=== PATIENT | female | born 1975 | race Caucasian/White ===

== ENCOUNTER 2017-12-17 20:14 | Emergency (ER) | payer MEDICAID ==
[~2017-12-17] VITALS: Ht 162.6 cm; Wt 79.4 kg
[2017-12-17 20:23] VITALS: Ht 162.6 cm; Wt 79.4 kg
[2017-12-17 22:19] LABS: BASOPHIL % 0.4 % (0-2)
[2017-12-17 22:20] LABS: PLATELET COUNT 409 x10^3mcL (130-400); RED CELL DISTRIBUTION WIDTH 20.9 % (11.5-14.5)
[2017-12-17 22:28] LABS: CALCIUM 8.8 mg/dL (8.5-10.1); CARBON DIOXIDE 25.7 mmol/L (21-32); CHLORIDE SERUM 103 mmol/L (98-107); CREATININE SERUM 0.6 mg/dL (0.6-1.0); GFR1 > 60 mL/min; GLUCOSE SERUM 86 mg/dL (74-106); POTASSIUM SERUM 3.4 mmol/L (3.5-5.1); SODIUM SERUM 140 mmol/L (136-145)
[2017-12-18 00:11] VITALS: BP 171/98
== END 2017-12-18 00:31 | disposition home or self-care (01) ==
LOC: ED 20:14
PROVIDERS: Emergency Medicine
DX: Z53.21 Procedure and treatment not carried out due to patient leaving prior to being seen by health care provider (principal)
CPT/HCPCS: J1885

== ENCOUNTER 2019-10-12 20:21 | Inpatient (IN) | payer MEDICAID ==
[~2019-10-12] VITALS: Ht 162.6 cm; Wt 88.0 kg
[2019-10-12 20:25] VITALS: Ht 162.6 cm; Wt 88.0 kg
--- NOTE | 2019-10-12 20:27 | NUR ---
EKG IN PROGRESS IN TRIAGE
[2019-10-12 21:42] LABS: CALCIUM 8.7 mg/dL (8.5-10.1); CARBON DIOXIDE 30.6 mmol/L (21-32); CHLORIDE SERUM 100 mmol/L (98-107); CREATININE SERUM 0.7 mg/dL (0.6-1.0); GFR1 > 60 mL/min; GLUCOSE SERUM 77 mg/dL (74-106); POTASSIUM SERUM 3.2 mmol/L (3.5-5.1); SODIUM SERUM 135 mmol/L (136-145)
[2019-10-12 21:53] LABS: ALBUMIN 3.6 g/dL (3.4-5.0); ALKALINE PHOSPHATASE 106 U/L (46-116); ALT/SGPT 30 U/L (14-59); AST/SGOT 23 U/L (15-37); BILIRUBIN TOTAL 0.2 mg/dL (0.20-1.00); TOTAL PROTEIN, SERUM 7.9 g/dL (6.4-8.2)
[2019-10-12 21:58] LABS: BASOPHIL % 1.1 % (0-2)
[2019-10-12 22:01] LABS: RED CELL DISTRIBUTION WIDTH 20.8 % (11.5-14.5)
[2019-10-12 22:31] LABS: rbc morphology (normal/abnorm) ABNORMAL (NORMAL)
[2019-10-12 22:35] LABS: PLATELET COUNT 520 x10^3mcL (130-400)
--- NOTE | 2019-10-12 22:36 | NUR ---
ISAAC AT BEDSIDE FOR REPEAT EKG. DR Anglin AT BEDSIDE FOR MSE.
--- NOTE | 2019-10-12 22:37 | NUR ---
PT PRESENTS TO ED WITH C/C LEFT SIDED, SQUEEZING CHEST PAIN X1 DAY. PT STS PAIN WAS INITIALLY SHARP, THEN SQUEEZING AND PRESURE. STS INTERMITTENT SOB. CP IS NOW INTERMITTENT. PT HAS PMH HTN AND HAS BEEN NON COMPLIANT WITH BP MEDS X1 YEAR. PT IS AAOX4. RESP E/U. SPEECH IS CLEAR. NO FACIAL DROOP NOTED. PAIN IS NON RADIATING AND GENERALIZED TO THE LEFT SIDE OF CHEST. CONNECTED TO FULL CM.
--- NOTE | 2019-10-12 23:15 | NUR ---
SPOKE WITH PHARMACIST TO VERIFY HEPARIN GTT AT THIS TIME AND RESUPPLY NITRO SL.
--- NOTE | 2019-10-12 23:30 | NUR ---
HEPARIN GTT STARTED AT THIS TIME. HEPARIN PROTOCOL VERIFIED WITH WILLIAM RN AND DR Yashira THOMAS RN AT BEDSIDE TO COSIGN HEPARIN INFUSION. TO BEGIN AT 1100U/HR. PT AWARE OF MEDCATIONS. DENIES ANY ACTIVE BLEEDING AT THIS TIME. WILL CONTINUE TO MONITOR.
--- NOTE | 2019-10-12 23:30 | NUR ---
KARMA Anglin NO LOADING DOSE FOR HEPARIN GTT.
--- NOTE | 2019-10-13 01:09 | NUR ---
PATIENT SLEEPING IN POSITION OF COMFORT. HEPARIN GTT REMAINS INFUSING WELL TO RFA, NO S/S INFILTRATION. WILL CONTINUE POC.
--- NOTE | 2019-10-13 01:32 | NUR ---
PER DR PEGUERO GIVE PATIENT ATIVAN AND LIBRIUM FOR TACHYCARDIA. WILL FOLLOW UP WITH DR PEGUERO IN 1 HOUR.
--- NOTE | 2019-10-13 02:22 | NUR ---
REPORT GIVEN TO ENRICO BURROUGHS.
[2019-10-13 04:15] VITALS: BP 160/95
--- NOTE | 2019-10-13 05:03 | NUR ---
PATIENT ADMITTED TO THE CARE OF DR. ABDALLA. DX: N-STEMI. CHIEF C/O: SOB CHEST PAIN UPON ARRIVAL TO ER. PATIENT RECEIVED NITRO 0.4MG SL ONCE IN ER-SEE NOV. UPON ARRIVAL TO THE UNIT PATIENT DENIES SOB/CHEST PAIN. V/S WNL. 97% ON ROOM AIR. R FA 20GM SL. SKIN IS INTACT. NO ACUTE DISTRESS NOTED. WILL CONTINUE TO MONITOR.
[2019-10-13 06:41] VITALS: BP 145/78
[2019-10-13 07:01] LABS: CALCIUM 8.6 mg/dL (8.5-10.1); CARBON DIOXIDE 29.2 mmol/L (21-32); CHLORIDE SERUM 105 mmol/L (98-107); CREATININE SERUM 0.8 mg/dL (0.6-1.0); GFR1 > 60 mL/min; GLUCOSE SERUM 79 mg/dL (74-106); HDL CHOLESTEROL 52 mg/dL (40-60); POTASSIUM SERUM 3.3 mmol/L (3.5-5.1); SODIUM SERUM 142 mmol/L (136-145); TRIGLYCERIDES 66 mg/dL (<150)
[2019-10-13 07:03] LABS: CHOLESTEROL 129 mg/dL (<200); CHOLESTEROL/HDL RATIO 2.5
--- NOTE | 2019-10-13 07:30 | NUR ---
RECEIVED PT IN BED. ASSESSED AND DOCUMENTED. AT BEDSIDE. DENIES ANY PAIN THIS TIME. STABLE. TROP IS 0.157 THIS TIME, ON HEPARIN DRIP 1100U/HR THIS TIME. SAFTEY PRECAUTIONS ARE IN PLACE. WILL MONITOR.
[2019-10-13 09:19] VITALS: BP 153/83
--- NOTE | 2019-10-13 09:51 | NUR ---
PTT IS 31.2, HEPARIN DRIP RATE INCREASE TO 1500U/HR, NO BOLUS ORDERED, PER ER DOCTOR ORDER, NO HEPARIN BOLUS, DRIP ONLY. PAGED FOR VERIFY HEPARIN BOLUS ORDER, CHARGE NURSE AWARE.
--- NOTE | 2019-10-13 12:20 | NUR ---
SPOKE WITH , HE SAID TO GIVE PT BOLUS PER PROTOCOLE. ALSO INFORMED HIM ABOUT PT ALL TROPONIN LEVELS. HE SAID TO CONTINUE HEPARIN DRIP. 5300 BOLUS GIVEN AND CONTINUE THE RATE OF 1500U/HR. INFORMED K=3.3, RECIEVED ORDER FOR KCL 40MEG PO AND GIVEN. PT IS STABLE. NO SIGNS OF BLEEDING NOTED. DENIES CHEST PAIN. WILL MONITOR.
[2019-10-13 12:40] LABS: PLATELET COUNT 481 x10^3mcL (130-400); RED CELL DISTRIBUTION WIDTH 21.1 % (11.5-14.5)
[2019-10-13 13:23] VITALS: BP 134/81
--- NOTE | 2019-10-13 17:35 | NUR ---
PTT IS >150, HOLDING THE HEPARIN DRIP FOR 2HR. ORDERED PTT AT 1935. WILL ENDORSE TO CONTRACT NEGOTIATION MANAGER. PT DENIES CHEST PAIN. STABLE. FAMILY AT BEDSIDE.
[2019-10-13 17:43] VITALS: BP 145/81
--- NOTE | 2019-10-13 19:13 | NUR ---
PT RESTING IN BED COMFORTABLY, DENIES ANY PAIN. STABLE. HEPARIN ON HOLD THIS TIME. GAVE REPORT TO [employer] LABORATORY MANAGER. NO SIGNS OF BLEEDING NOTED.
--- NOTE | 2019-10-13 19:58 | NUR ---
Awake and verbally responsive. No respiratory distress noted on room air. Denies pain. Denies n/v. Heparin drip off for now. Waiting for the PTT level. Will cont.to monitor. Call light within reach. at the bedside.
--- NOTE | 2019-10-13 20:30 | NUR ---
PTT 57.3. will resume heparin drip @ 1500units/hr per protocol. Will recheck PTT level in 4hrs.
[2019-10-13 21:13] VITALS: BP 120/66
--- NOTE | 2019-10-14 01:20 | NUR ---
Received PTT level 97.7 will hold heparin infusion x1hr and reduce infusion by 3units/kg/hr per protocol.
--- NOTE | 2019-10-14 02:20 | NUR ---
Resumed Heparin drip @ 1200 units/hr per protocol. Will repeat PTT in 4hrs.
[2019-10-14 05:13] VITALS: BP 121/65
[2019-10-14 05:28] LABS: AMPHETAMINE QUAL UR POSITIVE (See below)
--- NOTE | 2019-10-14 07:10 | NUR ---
RECEIVED PT FROM NIGHT NURSE. PT IS LAYING DOWN IN BED WITH HOB UP RESTING WITH EYES CLOSED. PT LOOKS TO BE IN NO ACUTE DISTRESS AT THIS TIME. RESPIRATIONS EVEN AND UNLABORED ON ROOM AIR. IV SITE PATENT WITH NO SIGNS OF ERYTHEMA OR SWELLING, HEPARIN DRIP INFUSING AT 1200U/HR. TELE MONITOR 1 PRESENT SHOWING NSR. FAMILY MEMBER AT BEDSIDE. CALL LIGHT WITHIN REACH. WILL CONTINUE TO MONITOR.
--- NOTE | 2019-10-14 08:05 | NUR ---
PTT 83.6. PT HEPARIN DRIP DECREASED FROM 1200U/HR TO 48349 /HR. VERIFIED WITH 2ND RN. PT LOOKS TO BE IN NO ACUTE DISTRESS AT THIS TIME. WILL CONTINUE TO MONITOR
[2019-10-14 09:00] VITALS: BP 120/72
[2019-10-14] MEDS ORDERED: CLOPIDOGREL75 M1 PO (11:04)
[2019-10-14] MEDS ORDERED: ISOSORBIDE30 M1 PO (11:04)
[2019-10-14] MEDS ORDERED: NIT0.4 SL (11:04)
[2019-10-14] MEDS ORDERED: ECO81 PO (11:05)
[2019-10-14] MEDS ORDERED: METOPROLOL TART25 M1 PO (11:05)
[2019-10-14 12:10] VITALS: BP 127/74
--- NOTE | 2019-10-14 13:23 | NUR ---
RECEIVED CALL FROM LAB WITH PTT OF 54.6. PER HEPARIN PROTOCOL, NO CHANGE IN RATE.
[2019-10-14 15:51] VITALS: BP 116/62
--- NOTE | 2019-10-14 16:29 | NUR ---
PRIMARY NURSE MADE AWARE THAT LAB CALLED, PTT=56.5.
--- NOTE | 2019-10-14 19:06 | NUR ---
PT AWAKE, ALERT AND ORIENTED AT TIME OF DISCHARGE. PT LOOKS TO BE IN NO ACUTE DISTRESS AND DENIES ANY PAIN AT TIME OF DISCHARGE. PT DISCHARGED HOME AND WALKED TO LOBBY ACCOMPANIED BY NURSE AND FAMILY MEMBERS WITH BELONGINGS IN HAND. PROVIDED PT WITH EDUCATION AND PRESCRPTIONS, PT VERBALIZED UNDERSTANDING. INFORMED PT TO FOLLOW UP WITH PCP WITHIN 1 WEEK OF DISCHARGE, PT VEBRALIZED UNDERSTANDING. REMOVED TELE MONTIOR AND RETURNED TO TELE STATION. IV REMOVED AND CATHETER FULLY INTACT. ALL QUESTIONS AND CONCERNS ADDRESSED.
== END 2019-10-14 19:00 | disposition home or self-care (01) | DRG 190 ==
LOC: ED 20:21 → DU 23:40
PROVIDERS: Emergency Medicine; ADMIT Internal Medicine Pulmonary Disease
DX: I21.4 Non-ST elevation (NSTEMI) myocardial infarction (principal); E87.6 Hypokalemia; I10 Essential (primary) hypertension; F41.8 Other specified anxiety disorders; F15.21 Other stimulant dependence, in remission; F17.210 Nicotine dependence, cigarettes, uncomplicated; Z79.82 Long term (current) use of aspirin; Z68.32 Body mass index [BMI] 32.0-32.9, adult; Z91.19 Patient's noncompliance with other medical treatment and regimen
CPT/HCPCS: 83880; 90732; G0378; J1644; J2405

== ENCOUNTER 2020-03-25 22:04 | Inpatient (IN) | payer MEDICAID ==
[~2020-03-25] VITALS: Ht 160 cm; Wt 88.9 kg
[~2020-03-25 22:04] MED LIST: CLOPIDOGREL75 M1 PO; ECO81 PO; ISOSORBIDE30 M1 PO; METOPROLOL TART25 M1 PO; NIT0.4 SL
[2020-03-25 22:13] VITALS: Ht 160 cm; Wt 88.9 kg
[2020-03-26 00:37] LABS: AMPHETAMINE QUAL UR NONE DETECTED (See below)
[2020-03-26 00:39] LABS: BASOPHIL % 0.1 % (0-2); PLATELET COUNT 333 x10^3mcL (130-400); RED CELL DISTRIBUTION WIDTH 29.5 % (11.5-14.5)
[2020-03-26 00:56] LABS: CARBON DIOXIDE 28.6 mmol/L (21-32); CHLORIDE SERUM 103 mmol/L (98-107); CREATININE SERUM 0.8 mg/dL (0.6-1.0); GFR1 > 60 mL/min; GLUCOSE SERUM 92 mg/dL (74-106); POTASSIUM SERUM 3.4 mmol/L (3.5-5.1); SODIUM SERUM 138 mmol/L (136-145)
[2020-03-26 01:01] LABS: ALBUMIN 3.4 g/dL (3.4-5.0); ALKALINE PHOSPHATASE 114 U/L (46-116); ALT/SGPT 24 U/L (14-59); AST/SGOT 20 U/L (15-37); BILIRUBIN TOTAL 0.2 mg/dL (0.20-1.00); TOTAL PROTEIN, SERUM 7.1 g/dL (6.4-8.2)
[2020-03-26 01:07] LABS: rbc morphology (normal/abnorm) ABNORMAL (NORMAL)
[2020-03-26] MEDS ORDERED: NATURE'S BLEND F1 MG PO (03:12)
[2020-03-26] MEDS ORDERED: IRON325 M3 PO (03:13)
[2020-03-26] MEDS ORDERED: TOPROL XL50 MG PO (03:14)
[2020-03-26] MEDS ORDERED: AMLODIPINE BESYL5 M2 PO (03:15)
[2020-03-26 03:57] LABS: CHOLESTEROL/HDL RATIO 2.3
[2020-03-26 07:27] LABS: microscopic required? NO
[2020-03-26 08:30] VITALS: BP 147/79
[2020-03-26 08:32] VITALS: BP 144/87
[2020-03-26 10:57] LABS: CALCIUM 7.9 mg/dL (8.5-10.1); CARBON DIOXIDE 25.4 mmol/L (21-32); CHLORIDE SERUM 105 mmol/L (98-107); CREATININE SERUM 0.6 mg/dL (0.6-1.0); GFR1 > 60 mL/min; GLUCOSE SERUM 95 mg/dL (74-106); MAGNESIUM 2.3 mg/dL (1.8-2.4); PHOSPHOROUS 2.8 mg/dL (2.5-4.9); POTASSIUM SERUM 3.7 mmol/L (3.5-5.1); SODIUM SERUM 137 mmol/L (136-145)
[2020-03-26 11:21] LABS: BASOPHIL % 0.2 % (0-2); PLATELET COUNT 350 x10^3mcL (130-400)
[2020-03-26 11:45] LABS: RED CELL DISTRIBUTION WIDTH 29.7 % (11.5-14.5)
[2020-03-26 12:00] LABS: RED BLOOD CELLS 4.82 M/mm3 (4.10-5.10)
[2020-03-26 12:10] LABS: UA SPECIFIC GRAVITY 1.025 (1.005-1.035); urine erythrocyte NEGATIVE (NEGATIVE)
[2020-03-26 12:43] VITALS: BP 166/107
[2020-03-26] MEDS ORDERED: LIPITOR20 MG GT (14:30)
[2020-03-26 15:08] LABS: TOTAL IRON BINDING CAPACITY 398 ug/dL (250-450)
[2020-03-26 15:30] LABS: IRON 227 ug/dL (50-170)
[2020-03-26 16:01] VITALS: BP 120/84
== END 2020-03-26 20:44 | disposition left against medical advice (07) | DRG 203 ==
LOC: ED 22:04 → DU 03-26 02:50
PROVIDERS: Emergency Medicine; ADMIT Family Medicine; ATTEND Family Medicine
DX: M94.0 Chondrocostal junction syndrome [Tietze] (principal); E83.51 Hypocalcemia; I10 Essential (primary) hypertension; E87.6 Hypokalemia; Z53.29 Procedure and treatment not carried out because of patient's decision for other reasons; F17.210 Nicotine dependence, cigarettes, uncomplicated; D50.9 Iron deficiency anemia, unspecified; I25.2 Old myocardial infarction; Z79.82 Long term (current) use of aspirin; Z79.899 Other long term (current) drug therapy; Z83.3 Family history of diabetes mellitus; Z82.49 Family history of ischemic heart disease and other diseases of the circulatory system
CPT/HCPCS: 83880; 99406; G0378; Q0092